=== PATIENT | female | born 1985 | race Caucasian/White ===

== ENCOUNTER 2017-12-18 16:47 | Inpatient (IN) | payer MEDICAID ==
[~2017-12-18] VITALS: Ht 167.6 cm; Wt 104.5 kg
[2017-12-18 17:28] LABS: MICROSCOPIC INDICATED
[2017-12-18 17:36] LABS: AMPHETAMINE SCREEN, URINE Positive (Negative); BARBITURATE SCREEN, URINE Negative (Negative); BENZODIAZEPINE SCREEN, URINE Negative (Negative); CANNABINOID SCREEN, URINE Negative (Negative); COCAINE SCREEN, URINE Negative (Negative); METHADONE SCREEN, URINE Negative (Negative); OPIATE SCREEN, URINE Negative (Negative)
[2017-12-18] MEDS ORDERED: NEWBORN KIT ONE (17:55)
[2017-12-18] MEDS ORDERED: OXYTOCIN 30U/ 0.9% NaCL 500ML 500 ML ONE (17:56)
[2017-12-18] MEDS ORDERED: LACTATED RINGERS 1,000 ML IV SCH ×2 (17:58→18:00)
[2017-12-18] MEDS ORDERED: OXYTOCIN 30U/ 0.9% NaCL 500ML 500 ML IV SCH (17:58)
[2017-12-18] MEDS ORDERED: SODIUM CITRATE/CITRIC ACID 30 ML UDC ONE (17:58)
[2017-12-18] MEDS ORDERED: METOCLOPRAMIDE 5 MG/ML, 2ML ONE (17:59)
[2017-12-18] MEDS ORDERED: SODIUM CITRATE/CITRIC ACID 30 ML UDC PO ONE (18:00)
[2017-12-18] MEDS ORDERED: LACTATED RINGERS 1,000 ML IVBOLUS ONE (18:00)
[2017-12-18] MEDS ORDERED: METOCLOPRAMIDE 5 MG/ML, 2ML IV ONE (18:00)
[2017-12-18 18:01] LABS: BASOPHILS # (AUTO) 0.02 x10^3/uL (0-0.1); BASOPHILS % (AUTO) 0 % (0-1); EOSINOPHILS # (AUTO) 0.07 x10^3/uL (0-0.4); EOSINOPHILS % (AUTO) 1 % (1-7); LYMPHOCYTES # (AUTO) 1.27 x10^3/uL (1-3.4); LYMPHOCYTES % (AUTO) 10 % (22-44); MD NO; MEAN CORPUSCULAR HEMOGLOBIN 31.4 pg (27.0-34.8); MEAN CORPUSCULAR HGB CONC 33.9 g/dL (32.4-35.8); MEAN CORPUSCULAR VOLUME 92.6 fL (80-100); MEAN PLATELET VOLUME 9.3 fL (7.4-10.4); MONOCYTES # (AUTO) 0.75 x10^3/uL (0.2-0.8); MONOCYTES % (AUTO) 6 % (2-9); NEUTROPHILS # (AUTO) 11.15 x10^3/uL (1.8-6.8); NEUTROPHILS % (AUTO) 84 % (42-75); PLATELET COUNT 241 x10^3/uL (130-400); RED BLOOD COUNT 4.17 x10^6/uL (3.82-5.3); RED CELL DISTRIBUTION WIDTH 13.1 % (9.6-15.2)
[2017-12-18] MEDS ORDERED: OXYTOCIN 10 UNITS/ML, 1ML ONE (18:12)
[2017-12-18] MEDS ORDERED: EPHEDRINE 50 MG/ML, 1ML ONE (18:12)
[2017-12-18] MEDS ORDERED: FENTANYL PF 100 MCG/2ML ONE (18:12)
[2017-12-18] MEDS ORDERED: KETOROLAC 30 MG/1 ML ONE (18:12)
[2017-12-18] MEDS ORDERED: CEFAZOLIN 1,000 MG ONE (18:12)
[2017-12-18] MEDS: KETOROLAC 30 MG/1 ML IV SCH (19:30)
[2017-12-18] MEDS: OXYTOCIN 30U/ 0.9% NaCL 500ML 500 ML IV SCH (19:40)
[2017-12-18] MEDS: LACTATED RINGERS 1,000 ML IV SCH ×2 (19:40→20:04)
[2017-12-18] MEDS ORDERED: PROMETHAZINE 25 MG/ML, 1ML IV PRN (20:00)
[2017-12-18] MEDS ORDERED: ONDANSETRON 2MG/ML, 2ML IV PRN ×2 (20:00)
[2017-12-18] MEDS ORDERED: OXYcodone 5 MG/5 ML ORAL.SOL UDC PO PRN (20:00)
[2017-12-18] MEDS ORDERED: OXYcodone/APAP 5/325MG TABLET PO PRN (20:00)
[2017-12-18] MEDS ORDERED: morphine SULFATE 10 MG/ML, 1ML IVPush PRN ×2 (20:00)
[2017-12-18] MEDS ORDERED: MORPHINE SULFATE 4 MG/ML, 1ML IVPush PRN (20:00)
[2017-12-18] MEDS ORDERED: MEPERIDINE/PF 100 MG/ML IVPush PRN (20:00)
[2017-12-18] MEDS ORDERED: MEPERIDINE/PF 50 MG/ML IVPush PRN (20:00)
[2017-12-18] MEDS ORDERED: MEPERIDINE/PF 25MG/0.5ML IVPush PRN (20:00)
[2017-12-18] MEDS ORDERED: MISOPROSTOL 200 MCG TABLET PR PRN (20:00)
[2017-12-18] MEDS ORDERED: ACETAMINOPHEN 325 MG TABLET PO PRN (20:00)
[2017-12-18] MEDS ORDERED: METHYLERGONOVINE 0.2 MG/ML IM PRN (20:00)
[2017-12-18] MEDS ORDERED: FENTANYL PF 100 MCG/2ML IV PRN (20:00)
[2017-12-18 21:10] VITALS: BP 127/83
[2017-12-18] MEDS: OXYcodone/APAP 5/325MG TABLET PO PRN (23:25)
[2017-12-18 23:45] VITALS: BP 122/77
[2017-12-19] MEDS: LACTATED RINGERS 1,000 ML IV SCH ×5 (01:45→18:55)
[2017-12-19] MEDS: KETOROLAC 30 MG/1 ML IV SCH ×3 (01:50→14:00)
[2017-12-19] MEDS: OXYcodone/APAP 5/325MG TABLET PO PRN ×3 (03:52→12:25)
[2017-12-19 04:15] VITALS: BP 112/73
[2017-12-19 05:33] LABS: BASOPHILS % (AUTO) 0 % (0-1); EOSINOPHILS # (AUTO) 0.01 x10^3/uL (0-0.4); EOSINOPHILS % (AUTO) 0 % (1-7); LYMPHOCYTES # (AUTO) 0.92 x10^3/uL (1-3.4); LYMPHOCYTES % (AUTO) 9 % (22-44); MD NO; MEAN CORPUSCULAR HEMOGLOBIN 31.1 pg (27.0-34.8); MEAN CORPUSCULAR VOLUME 91.3 fL (80-100); MEAN PLATELET VOLUME 9.4 fL (7.4-10.4); MONOCYTES # (AUTO) 0.64 x10^3/uL (0.2-0.8); MONOCYTES % (AUTO) 6 % (2-9); NEUTROPHILS # (AUTO) 8.51 x10^3/uL (1.8-6.8); NEUTROPHILS % (AUTO) 84 % (42-75); PLATELET COUNT 182 x10^3/uL (130-400); RED BLOOD COUNT 3.26 x10^6/uL (3.82-5.3); RED CELL DISTRIBUTION WIDTH 12.9 % (9.6-15.2)
[2017-12-19] MEDS: OXYTOCIN 30U/ 0.9% NaCL 500ML 500 ML IV SCH ×2 (05:40→15:40)
[2017-12-19] MEDS: GUAIFENESIN 100 MG/5 ML, 5ML UDC PO PRN ×3 (06:19→19:32)
[2017-12-19] MEDS: DOCUSATE 100 MG CAPSULE PO PRN ×2 (07:50→19:31)
[2017-12-19] MEDS: PRENATAL VIT/IRON/FA 1 EACH TABLET PO SCH (07:52)
[2017-12-19] MEDS: NICOTINE 14MG/24 HR PATCH.TD24 TD SCH (08:00)
[2017-12-19 08:55] VITALS: BP 129/73
[2017-12-19] MEDS: SIMETHICONE 80 MG CHEW TAB PO PRN (19:30)
[2017-12-19] MEDS: OXYcodone IR 5MG TABLET PO PRN (19:31)
[2017-12-19] MEDS: IBUPROFEN 600 MG TABLET PO PRN (19:32)
[2017-12-19 19:52] VITALS: BP 130/83
[2017-12-20] MEDS: OXYcodone IR 5MG TABLET PO PRN (00:05)
[2017-12-20] MEDS: LACTATED RINGERS 1,000 ML IV SCH ×3 (01:40→21:40)
[2017-12-20] MEDS: OXYTOCIN 30U/ 0.9% NaCL 500ML 500 ML IV SCH ×3 (01:40→21:40)
[2017-12-20] MEDS: SIMETHICONE 80 MG CHEW TAB PO PRN ×2 (03:33→15:23)
[2017-12-20] MEDS: IBUPROFEN 600 MG TABLET PO PRN ×3 (03:33→22:36)
[2017-12-20 08:00] VITALS: BP 133/84
[2017-12-20] MEDS: DOCUSATE 100 MG CAPSULE PO PRN ×2 (08:00→22:36)
[2017-12-20] MEDS: NICOTINE 14MG/24 HR PATCH.TD24 TD SCH (08:00)
[2017-12-20] MEDS: PRENATAL VIT/IRON/FA 1 EACH TABLET PO SCH (08:07)
[2017-12-20] MEDS ORDERED: IBUP-1222 PO (09:10)
[2017-12-20] MEDS ORDERED: OXYC-302 PO (09:11)
[2017-12-20] MEDS: OXYcodone/APAP 5/325MG TABLET PO PRN ×2 (15:23→22:36)
[2017-12-20 19:30] VITALS: BP 134/82
[2017-12-20 20:00] VITALS: BP 134/82
[2017-12-21] MEDS: IBUPROFEN 600 MG TABLET PO PRN ×2 (06:38→16:01)
[2017-12-21] MEDS: OXYcodone/APAP 5/325MG TABLET PO PRN ×2 (06:38→16:02)
[2017-12-21 07:00] VITALS: BP 139/83
[2017-12-21] MEDS: OXYTOCIN 30U/ 0.9% NaCL 500ML 500 ML IV SCH (07:40)
[2017-12-21] MEDS: LACTATED RINGERS 1,000 ML IV SCH (07:40)
[2017-12-21] MEDS: NICOTINE 14MG/24 HR PATCH.TD24 TD SCH (08:00)
[2017-12-21] MEDS: DOCUSATE 100 MG CAPSULE PO PRN (08:00)
[2017-12-21] MEDS: PRENATAL VIT/IRON/FA 1 EACH TABLET PO SCH (08:00)
== END 2017-12-21 16:06 | disposition home or self-care (01) | DRG 787 ==
LOC: LDOP 16:47 → LDIP 17:53 → 2NW 20:37
PROVIDERS: ADMIT Obstetrics & Gynecology; ATTEND Obstetrics & Gynecology
PROC: 10D00Z1 Extraction of Products of Conception, Low, Open Approach (ICD-10-PCS; principal; 2017-12-18)
DX: O34.211 Maternal care for low transverse scar from previous cesarean delivery (principal); O99.324 Drug use complicating childbirth; O69.81X0 Labor and delivery complicated by cord around neck, without compression, not applicable or unspecified; O77.0 Labor and delivery complicated by meconium in amniotic fluid; Z37.0 Single live birth; Z3A.38 38 weeks gestation of pregnancy; O09.33 Supervision of pregnancy with insufficient antenatal care, third trimester; F15.90 Other stimulant use, unspecified, uncomplicated; O99.334 Smoking (tobacco) complicating childbirth; Z72.0 Tobacco use
CPT/HCPCS: 36415; 76805; 80307; 81001; 82803; 85025; 86592; 86762; 86850; 86900; 86923; 87077; 87086; 87186; 87340; 87806; G0378; J0690; J1885; J3010; G0475; J2270; J2590; J2765; J7120